=== PATIENT | male | born 1965 | race Caucasian/White ===

== ENCOUNTER 2019-01-07 11:26 | Emergency (ER) | payer OTHER ==
[~2019-01-07] VITALS: Ht 175.3 cm; Wt 85.2 kg
[~2019-01-07 11:26] MED LIST: IBUP800T48 PO
[2019-01-07 12:10] VITALS: Ht 175.3 cm; Wt 85.2 kg
[2019-01-07] MEDS ORDERED: IOHEXOL 300MG/ML 150 ML BTL ONE (14:18)
[2019-01-07] MEDS ORDERED: SOD CHLORIDE 0.9% 100 ML ONE (14:18)
[2019-01-07] MEDS ORDERED: IBUPROFEN 600 MG TAB PO ONE (16:00)
[2019-01-07 17:45] VITALS: BP 116/67; PULSE 68; RESP 18
== END 2019-01-07 19:17 | disposition home or self-care (01) ==
LOC: E/R 11:26 → FTE 19:17
DX: E04.1 Nontoxic single thyroid nodule (principal)
CPT/HCPCS: 70491; 76536; 80053; 84436; 84479; 85025; 99284; Q9967